=== PATIENT | male | born 1995 ===

== ENCOUNTER 2021-11-28 06:15 | Day surgery (SDC) | payer OTHER ==
[~2021-11-28] VITALS: Ht 170.2 cm; Wt 83.2 kg
[2021-11-28] VITALS (8 sets, daily range): BP systolic 124–144; BP diastolic 76–86; PULSE 60–83; TEMP 97.7–98.4
--- NOTE | 2021-11-28 09:55 | NUR ---
PATIENT RETURNS TO ROOM 7 PER CART FROM PACU ACCOMPANIED BY KEVIN VARGAS AND IS AWAKE AND ALERT. DRESSING DRY AND INTACT RIGHT GROIN. IV FLUIDS INFUSING AND SITE FREE OF REDNESS. TEMP 97.8 AND ROOM AIR SATS 98%. SIDERAILS UP X2 AND CALL LIGHT IN REACH. TAKING SIPS OF WATER AND SPRITE. DENIES PAIN OR NAUSEA.
--- NOTE | 2021-11-28 10:10 | NUR ---
RESTING AND OFFERS NO COMLAINTS.
--- NOTE | 2021-11-28 10:25 | NUR ---
RESTING WITH EYES CLOSED AND OFFERS NO COMPLAINTS.
--- NOTE | 2021-11-28 10:40 | NUR ---
CONTINUES TO REST WITH EYES CLOSED AND NOT DISTURBED. IV FLUIDS INFUSING AT TKO.
--- NOTE | 2021-11-28 10:55 | NUR ---
CONTINUES TO REST WITH EYES CLOSED AND NOT DISTURBED.
--- NOTE | 2021-11-28 11:25 | NUR ---
AWAKE AND DENIES NEED FOR PAIN MEDICATIONS AT THIS TIME. ROOM AIR SATS 99%. DRINKING WATER AND SPRITE.
--- NOTE | 2021-11-28 11:43 | NUR ---
IV TO INT. ASSISTED UP TO THE BATHROOM AND GAIT IS STEADY. VOIDS AND RETURNS TO ROOM.
--- NOTE | 2021-11-28 11:58 | NUR ---
RATES PAIN AT 6/10 WITH MOVEMENT. MEDICATED WITH ROXICODONE. TOLERATED PUDDING. INT DISCONTINUED. SITE IS FREE OF REDNESS.
--- NOTE | 2021-11-28 12:16 | NUR ---
PATIENT DRESSES SELF. DRESSING REMAINS DRY ON THE RIGHT GROIN AREA. GIVEN DISMISSAL INSTRUCTIONS AND VOICES UNDERSTANDING OF HOME CARES AND FOLLOW UP.
--- NOTE | 2021-11-28 12:27 | NUR ---
PATIENT DISMISSED TO HOME DRIVEN BY FRIEND AND TAKEN TO THE FRONT DOOR PER WHEELCHAIR AND ASSISTED INTO VEHICLE WITH INSTRUCTIONS IN HAND.
== END 2021-11-28 12:27 | disposition home or self-care (01) ==
LOC: SDCO 06:15
DX: C62.91 Malignant neoplasm of right testis, unspecified whether descended or undescended (principal); F17.210 Nicotine dependence, cigarettes, uncomplicated
CPT/HCPCS: J0690; J1100; J1170; J2405; J2704; J3010; J7120